=== PATIENT | male | born 1980 | race Caucasian/White ===

== ENCOUNTER 2017-01-29 17:12 | Inpatient (IN) | payer SELFPAY ==
[~2017-01-29] VITALS: Ht 170.2 cm; Wt 79.4 kg
[2017-01-29] MEDS ORDERED: NALOXONE 0.4 MG/ML VIAL. ONE (17:18)
--- NOTE | 2017-01-29 17:23 | PHYS DOC ---
Text Text Pt. continues to be very confused and falls asleep. Pt. admits to alcohol intake and Opana use. Pt. presentation, testing and tx. plan discussed with Dr. Espitia- will admit for further eval. and tx. Impression: 1. Mental status Change 2. Polysubstance Abuse 3. Leukocytosis 4. Elevated D-dimer 5. Hx. of Spherocytosis-given by pt. 6. Hypernatremia 7. Hypokalemia See Dr. Lowry chart for details. (TANA VÁSQUEZ MD) General Chief Complaint: ALTERED MENTAL STATUS Stated Complaint: ALTERED MENTAL STATUS Time Seen by MD: 17:20 Source: patient, other Exam Limitations: clinical condition Problems: (KRISTOFER LOWRY DO) Time Seen by MD: 18:35 Problems: (TANA VÁSQUEZ MD) History of Present Illness Initial Comments Pt is 36/M to ED with friend POV for AMS and suspected substance abuse. Friend states that pt, he and sons were fishing at park. States he saw pt lying on ground unresponsive, he brought pt to ED. On ED arrival no medical history at all known. Pt tachycardic, rousable but sedated. He's protecting his airway, otherwise stable vitals. Pt friend left immediately after dropping pt off "to go order picker kids." No other information available. Timing/Duration: unsure Severity: severe Modifying Factors: improves with other Associated Symptoms: other (KRISTOFER LOWRY DO) Allergies: Coded Allergies: No Known Drug Allergies (Unverified , 09/28/16) Past Medical History Medical History: other (unknown) Surgical History: noncontributory (KRISTOFER LOWRY DO) Social History Smoker: other (not known) Alcohol: other (not known) Drugs: other (not known) (KRISTOFER LOWRY DO) Review of Systems All Other Systems: Reviewed and Negative (pt unresponsive accurate ROS unobtainable) (KRISTOFER LOWRY DO) Physical Exam General Appearance: WD/WN (lethargic/sedated) Eyes: bilateral eye EOMI, bilateral eye other (pupils constricted) Ear, Nose, Throat: hearing grossly normal, normal ENT inspection, normal pharynx Neck: non-tender, supple Respiratory: normal breath sounds, no respiratory distress Cardiovascular: normal peripheral pulses, tachycardia Gastrointestinal: normal bowel sounds, soft Back: no CVA tenderness, no vertebral tenderness Extremities: normal range of motion, non-tender Neurologic/Psychiatric: other (no lateralizing neurodefs, sedate but rousable, doesn't answer or follow instructions.) Skin: normal color, diaphoresis (KRISTOFER LOWRY DO) Orders, Labs, Meds EKG: appears to be atrial fibrillation with RVR 131 bpm Pt awoke with narcan IV x 1, states he took opana. Studies pending, pt signed out to Dr Vásquez at 1800 shift change. See his documentation for results/disposition. (KRISTOFER LOWRY DO) KRISTOFER LOWRY DO Jan 29, 2017 17:23 TANA VÁSQUEZ MD Jan 30, 2017 05:47
--- NOTE | 2017-01-29 17:24 | EKG ---
[address] [address] Test Date: 2017-01-29 Test Time: 17:17:38 Pat Name: CHANI HARDING Department: Room: Gender: M Rn Cardiovascular Icu: PEDRO : 1980 Requested By: KRISTOFER LOWRY Order Number: [id number] Reading MD: Measurements Intervals [place] Rate: 131 P: OR: QRS: 43 QRSD: 94 T: 14 QT: 320 QTc: 478 Interpretive Statements IRREGULAR RHYTHM, NO P-WAVE FOUND NO SPECIFIC ECG ABNORMALITIES RI6.01 Unconfirmed report No previous ECG available for comparison
[2017-01-29] MEDS ORDERED: ONDANSETRON PF 4 MG/2 ML VIAL. ONE (17:25)
[2017-01-29] MEDS ORDERED: NALOXONE 0.4 MG/ML VIAL. IV ONE (17:30)
[2017-01-29] MEDS ORDERED: ONDANSETRON PF 4 MG/2 ML VIAL. IV ONE (17:45)
[2017-01-29 17:49] LABS: BASO # 0.1 x10^3/uL (0.0-0.2); BASO % 0 % (0-3); EOS # 0.4 x10^3/uL (0.0-0.7); EOS % 2 % (0-3); HEMATOCRIT 50.6 % (39.0-53.0); HEMOGLOBIN 17.5 g/dL (13.0-17.5); LYMPH # 5.8 x10^3/uL (1.0-4.8); LYMPH % 27 % (24-48); MEAN CORPUSCULAR HEMOGLOBIN 33 pg (25-35); MEAN CORPUSCULAR HGB CONC 35 g/dL (31-37); MEAN CORPUSCULAR VOLUME 94 fL (79-100); MONO # 1.8 x10^3/uL (0.0-1.1); MONO % 8 % (0-9); NEUT # 13.7 x10^3uL (1.8-7.7); NEUT % 63 % (31-73); PLATELET COUNT 350 x10^3/uL (140-400); RED BLOOD COUNT 5.39 x10^6/uL (4.30-5.70); RED CELL DISTRIBUTION WIDTH 15.3 % (11.5-14.5); WHITE BLOOD COUNT 21.7 x10^3/uL (4.0-11.0)
[2017-01-29 18:00] LABS: ALBUMIN 4.7 g/dL (3.4-5.0); CALCIUM 8.8 mg/dL (8.5-10.1); CREATININE 1.1 mg/dL (0.7-1.3); DIRECT BILIRUBIN 0.2 mg/dL (0.0-0.2); GFR 75.3; MAGNESIUM 2.2 mg/dL (1.8-2.4); POTASSIUM 3.1 mmol/L (3.5-5.1); TOTAL BILIRUBIN 0.7 mg/dL (0.2-1.0); TOTAL PROTEIN 8.4 g/dL (6.4-8.2)
[2017-01-29] MEDS ORDERED: MVI, ADULT NO.4 WITH VIT K 10 ML, FOLIC ACID SYRINGE for ER 1 MG, THIAMINE 100 MG in IV... IV SCH ×4 (18:00)
[2017-01-29] MEDS ORDERED: IV NORMAL SALINE 1,000ML 1,000 ML ONE (18:05)
[2017-01-29] MEDS ORDERED: THIAMINE 200 MG/2 ML VIAL. IV ONE (18:05)
[2017-01-29] MEDS ORDERED: MVI, ADULT NO.4 WITH VIT K 10 ML VIAL IV ONE (18:05)
[2017-01-29] MEDS ORDERED: FOLIC ACID 5 MG/ML SYRINGE for ER IV ONE (18:06)
[2017-01-29] MEDS ORDERED: ONDANSETRON PF 4 MG/2 ML VIAL. IV PRN (18:45)
[2017-01-29] MEDS ORDERED: CONTRAST GIVEN MC PRN (19:00)
[2017-01-29] MEDS: IV RINGERS SOLUTION,LACTATED 1,000 ML IV SCH (19:00)
[2017-01-29] MEDS ORDERED: NALOXONE 2 MG/2 ML DISP.SYRIN. IV PRN (19:00)
[2017-01-29] MEDS ORDERED: IOHEXOL 300 MG/ML 75 ML VIAL. IV ONE (19:00)
[2017-01-29] MEDS ORDERED: CEFTRIAXONE SODIUM 1 GM in IV NORMAL SALINE 50ML 50 ML IV ONE (19:15)
[2017-01-29] MEDS ORDERED: ENOXAPARIN ** NOTE DOSE ** SYRINGE SQ SCH (19:30)
--- NOTE | 2017-01-29 19:43 | RAD ---
PROCEDURE CTA chest with contrast dated 01/29/2017. HISTORY Found unresponsive. Elevated D-dimer. TECHNIQUE Contiguous axial imaging of the chest performed following the intravenous administration of 75 cc Omnipaque 300. Study was performed as a dedicated PE protocol with thin cut coronal MIPS 3D reconstructions.Exposure: One or more of the following individualized dose reduction techniques were utilized for this exam: 1. Automated exposure control. 2. Adjustment of the mA and/or kV according to patient size. 3. Use of iterative reconstruction technique. COMPARISON None. FINDINGS Study is somewhat limited due to motion artifact. There are questionable filling defects within the anterior left upper lobe segmental pulmonary artery and the lateral basal segmental artery of the right lower lobe (images 34 and 69). There is also questionable filling defect of the lateral superior segmental branch of the right lower lobe (image 51). No main pulmonary embolus or lobar pulmonary embolus. Heart size within normal limits. No pericardial effusion. No mediastinal, hilar or axillary lymphadenopathy. Central airways are patent. The no consolidation or pleural effusion. Minimal linear opacity in the lingula, likely scar or atelectasis. No pneumothorax. Limited images of upper abdomen are unremarkable. No acute bony abnormality. IMPRESSION - Limited exam. There are suspected small emboli involving the left upper lobe and right lower lobe pulmonary arteries as described above. Suggest correlation with venous Doppler exam. - Otherwise no significant abnormality. Clear lungs. Electronically signed by: Harrison Hilton (Jan 29, 2017 19:42:12)
[2017-01-29 19:52] LABS: % BANDS 2 % (0-9); % BASOS 1 % (0-3); % EOS 2 % (0-5); % LYMPHS 24 % (24-48); % MONOS 8 % (0-10); % SEGS 63 % (35-66); PLT ESTIMATE ADEQUATE (ADEQUATE)
[2017-01-29 19:54] LABS: ANISOCYTOSIS SLIGHT
[2017-01-29 19:55] LABS: POLYCHROMASIA SLIGHT
[2017-01-29 20:00] VITALS: BP 110/65
[2017-01-29 21:00] VITALS: BP 118/69
[2017-01-29] MEDS ORDERED: LORAZEPAM 1 MG TABLET. PO SCH (21:00)
[2017-01-29] MEDS: IPRATRPIUM/ALBUTEROL 0.5/2.5MG 3 ML NEBU. NEB SCH (21:00)
[2017-01-29 21:21] VITALS: BP 109/67
[2017-01-29] MEDS ORDERED: CEFTRIAXONE SODIUM 1 GM VIAL IV ONE (21:24)
[2017-01-29] MEDS ORDERED: IV NORMAL SALINE 50ML 50 ML ONE (21:24)
[2017-01-29 22:00] VITALS: BP 127/72
[2017-01-29] MEDS: LORAZEPAM 2 MG/ML VIAL IV PRN (22:47)
[2017-01-29 23:00] VITALS: BP 112/69
[2017-01-29 23:13] LABS: BILIRUBIN,URINE NEG (NEG); CLARITY,URINE CLEAR; COLOR,URINE AMBER; GLUCOSE,URINE 250 mg/dL (NEG)
[2017-01-29 23:14] LABS: BACTERIA,URINE 0 /HPF (0-FEW); NITRITE,URINE NEG (NEG); RBC,URINE OCC /HPF (0-2); SQUAMOUS EPITHELIAL CELL,UR OCC /LPF; UROBILINOGEN,URINE 0.2 mg/dL (0.2 mg/dL); WBC,URINE OCC /HPF (0-4)
[2017-01-29 23:26] LABS: BARBITURATES NEG (NEG); BENZODIAZEPINES NEG (NEG); CANNABINOIDS NEG (NEG); COCAINE NEG (NEG); METHADONE NEG (NEG); OPIATES NEG (NEG); PHENCYCLIDINE NEG (NEG)
[2017-01-29 23:30] LABS: AMPHETAMINE/METHAMPHETAMINE NEG (NEG)
[2017-01-30] VITALS (11 sets, daily range): BP systolic 94–147; BP diastolic 48–88
[2017-01-30] MEDS ORDERED: clonazepam (03:33)
[2017-01-30] MEDS ORDERED: wellbutrin (03:33)
[2017-01-30] MEDS: IV RINGERS SOLUTION,LACTATED 1,000 ML IV SCH ×3 (03:55→12:07)
[2017-01-30] MEDS: LORAZEPAM 2 MG/ML VIAL IV PRN (04:05)
[2017-01-30 06:46] LABS: BASO # 0.1 x10^3/uL (0.0-0.2); BASO % 0 % (0-3); EOS # 0.2 x10^3/uL (0.0-0.7); EOS % 1 % (0-3); HEMATOCRIT 41.9 % (39.0-53.0); HEMOGLOBIN 14.9 g/dL (13.0-17.5); LYMPH # 2.8 x10^3/uL (1.0-4.8); LYMPH % 16 % (24-48); MEAN CORPUSCULAR HEMOGLOBIN 33 pg (25-35); MEAN CORPUSCULAR HGB CONC 36 g/dL (31-37); MEAN CORPUSCULAR VOLUME 91 fL (79-100); MONO # 2.4 x10^3/uL (0.0-1.1); MONO % 14 % (0-9); NEUT # 11.9 x10^3uL (1.8-7.7); NEUT % 68 % (31-73); PLATELET COUNT 299 x10^3/uL (140-400); RED BLOOD COUNT 4.59 x10^6/uL (4.30-5.70); RED CELL DISTRIBUTION WIDTH 15.1 % (11.5-14.5); WHITE BLOOD COUNT 17.4 x10^3/uL (4.0-11.0)
[2017-01-30 07:07] LABS: ALBUMIN 3.5 g/dL (3.4-5.0); ALBUMIN/GLOBULIN RATIO 1.1 (1.0-1.7); CALCIUM 8.5 mg/dL (8.5-10.1); CREATININE 0.9 mg/dL (0.7-1.3); POTASSIUM 3.6 mmol/L (3.5-5.1); TOTAL BILIRUBIN 1.2 mg/dL (0.2-1.0); TOTAL PROTEIN 6.6 g/dL (6.4-8.2)
[2017-01-30] MEDS ORDERED: LORAZEPAM 1 MG TABLET. PO PRN (08:15)
[2017-01-30] MEDS ORDERED: HYDR50TA PO (08:34)
[2017-01-30] MEDS ORDERED: BUPR150T8 PO (08:34)
[2017-01-30] MEDS ORDERED: CLON1TAB3 PO (08:34)
[2017-01-30] MEDS: IPRATRPIUM/ALBUTEROL 0.5/2.5MG 3 ML NEBU. NEB SCH ×2 (08:49→13:00)
--- NOTE | 2017-01-30 08:51 | RAD ---
Exam: AP portable chest. History: Altered mental status, weakness, dizziness. Comparison: 08/04/2012. Findings: The heart and mediastinal structures are within normal limits for size. Lungs are without infiltrate. No pneumothorax or pleural effusion is appreciated. Impression: 1. No acute cardiopulmonary process.
[2017-01-30] MEDS ORDERED: ENOXAPARIN ** NOTE DOSE ** SYRINGE SQ SCH (09:00)
[2017-01-30] MEDS ORDERED: MVI, ADULT NO.4 WITH VIT K 10 ML, FOLIC ACID 1 MG, THIAMINE 100 MG in IV NORMAL SALINE ... IV SCH ×4 (09:00)
--- NOTE | 2017-01-30 10:15 | RAD ---
Bilateral lower extremity venous Doppler ultrasound History: Elevated d-dimer. Comparison: None. Procedure: Color Doppler, spectral Doppler, and grayscale images are obtained with and without compression in the area of the common femoral vein, superficial femoral vein - femoral vein junction, main femoral vein (superficial femoral vein) and popliteal vein. Veins of the proximal calf are also imaged. Findings: There is normal duplex flow, color flow and compressibility of all visualized vein segments. No evidence of deep venous thrombosis is present. Impression: No evidence of lower extremity deep venous thrombosis.
[2017-01-30] MEDS ORDERED: APIX5TAB PO ×4 (13:26→13:34)
--- NOTE | 2017-01-30 15:49 | SSS ---
ADMIT DATE: 01/30/2017 DISCHARGE DIAGNOSES: 1. Bilateral pulmonary embolisms. 2. Alcohol intoxication. 3. Opiate abuse - IV use of Opana. 4. Tobacco use disorder. 5. Hypokalemia. 6. Anxiety. HOSPITAL COURSE AND MEDICAL DECISION MAKING: A 36-year-old male, who was with his friend last night, who evidently abuses Opana and offered him a half of Opana "? unknown dose to shoot up." He did end evidently since he is opioid na?ve and he passed out. He was intoxicated with alcohol at that time and was transported to the Emergency Room. While in the Emergency Room, he was found to have an elevated D-dimer and also an elevated white count, I suspect from inflammation. His hypokalemia was corrected and his hypernatremia was also corrected with IV fluids. ALLERGIES: None. MEDICATIONS: Reviewed. The patient had a CT of the chest and was found to have bilateral pulmonary emboli. In discussion with the radiologist felt that this is was true finding, but sometimes IV drug use can give the same picture. He was a little bit short of breath yesterday. The patient was started on Lovenox and was on the alcohol withdrawal protocol. He never showed any signs of alcohol withdrawal. He did have one dose of ceftriaxone because of elevated white count: OBJECTIVE: VITAL SIGNS: At discharge 134/74, pulse 82, respirations 19, pulse ox 95% on room air. GENERAL: The patient was alert and cooperative. HEENT: Hearing is normal. His eyes are clear. His nose patent. His tongue was moist. NECK: Supple. LUNGS: Clear. CARDIOVASCULAR: Regular rhythm and rate. ABDOMEN: Soft, nontender. EXTREMITIES: Without edema. NEUROLOGIC: Has a little bit of a tremor, post-alcohol tremor of his hands. LABORATORY DATA: Reviewed. He did have elevated white count 21.7, now it is 17.4. DISPOSITION: Home. He was started on Eliquis. Detailed instructions were given as well as ability to be able to pay for it. Encouraged to quit smoking and follow up with his regular doctor. ERIN VOGT DO DR: SHIRLEY/curt JOB#: [id number] / [id number]
[2017-01-30] MEDS ORDERED: CEFTRIAXONE SODIUM 1 GM in IV NORMAL SALINE 50ML 50 ML IV SCH (20:00)
== END 2017-01-30 14:01 | disposition home or self-care (01) | DRG 175 ==
LOC: ER 17:12 → ICU 18:50
PROVIDERS: ADMIT Internal Medicine; ATTEND Internal Medicine
DX: I26.99 Other pulmonary embolism without acute cor pulmonale (principal); G93.41 Metabolic encephalopathy; E87.0 Hyperosmolality and hypernatremia; D72.829 Elevated white blood cell count, unspecified; E87.6 Hypokalemia; F10.129 Alcohol abuse with intoxication, unspecified; F11.10 Opioid abuse, uncomplicated; F41.9 Anxiety disorder, unspecified; Z72.0 Tobacco use
CPT/HCPCS: 36415; 71010; 71275; 80048; 80053; 80076; 81001; 82550; 83690; 83735; 83880; 84484; 85007; 85027; 85379; 87040; 87641; 93005; 93970; 96374; 96375; G0480; G0481; J0696; J1650; J2060; J2310; J2405; J7120; Q9967; 99285-25; J7030

== ENCOUNTER → 2017-02-11 | Emergency (ER) | payer SELFPAY ==
[~2017-02-11] MED LIST: ALPRAZOLAM 0.25 MG TABLET PO ONE; APIX5TAB PO; BUPR150T8 PO; CLON1TAB3 PO; HYDR50TA PO; clonazepam; wellbutrin
[2017-02-11 13:27] VITALS: BP 172/90
--- NOTE | 2017-02-11 16:34 | ED.ADGEN ---
Past History Past Medical History: Anxiety, Depression, Other Past Surgical History: Other Alcohol Use: Heavy Additional Alcohol Information: drank 3 beers this am per pt recall Drug Use: Other Social History Narrative: history of opiate abuse in old chart Adult General HPI HPI Patient is a 36-year-old male presents emergency department complaining of increased anxiety. Patient has a history of anxiety and his usual klonopine. However he did not take it today because "I do not like to take it too often". Patient denies any other complaint at this time. Review of Systems Review of Systems Constitutional: Denies fever or chills [] Eyes: Denies change in visual acuity, redness, or eye pain [] HENT: Denies nasal congestion or sore throat [] Respiratory: Denies cough or shortness of breath [] Cardiovascular: No additional information not addressed in HPI [] GI: Denies abdominal pain, nausea, vomiting, bloody stools or diarrhea [] : Denies dysuria or hematuria [] Musculoskeletal: Denies back pain or joint pain [] Integument: Denies rash or skin lesions [] Neurologic: Denies headache, focal weakness or sensory changes [] Endocrine: Denies polyuria or polydipsia [] Current Medications Current Medications Current Medications Medications (Trade) Dose Ordered Sig/Ramin Start Time Stop Time Status Last Admin Dose Admin Alprazolam (Xanax) 0.5 mg 1X ONCE 02/11/17 14:45 02/11/17 14:46 DC 02/11/17 15:03 0.5 MG Allergies Allergies Allergies Coded Allergies Type Severity Reaction Last Updated Verified I S O L A T I O N *CONTACT* Allergy Unknown 01/31/17 Yes NKMA Allergy Unknown 01/31/17 Yes Physical Exam Physical Exam Constitutional: Well developed, well nourished, no acute distress, non-toxic appearance. [] HENT: Normocephalic, atraumatic, bilateral external ears normal, oropharynx moist, no oral exudates, nose normal. [] Eyes: PERRLA, EOMI, conjunctiva normal, no discharge. [] Neck: Normal range of motion, no tenderness, supple, no stridor. [] Cardiovascular:Heart rate regular rhythm, no murmur [] Lungs & Thorax: Bilateral breath sounds clear to auscultation [] Abdomen: Bowel sounds normal, soft, no tenderness, no masses, no pulsatile masses. [] Skin: Warm, dry, no erythema, no rash. [] Back: No tenderness, no CVA tenderness. [] Extremities: No tenderness, no cyanosis, no clubbing, ROM intact, no edema. [] Neurologic: Alert and oriented X 3, normal motor function, normal sensory function, no focal deficits noted. [] Psychologic: Affect normal, judgement normal, mood normal. [] Current Patient Data Vital Signs Vital Signs Date Time Temp Pulse Resp B/P Pulse Ox O2 Delivery O2 Flow Rate FiO2 02/11/17 13:27 97.7 138 16 94 Room Air EKG EKG [] Radiology/Procedures Radiology/Procedures [] Course & Med Decision Making Course & Med Decision Making Pertinent Labs and Imaging studies reviewed. (See chart for details) Patient received a dose of Xanax here in emergency Department with good effect. He was discharged home and instructed to follow-up with his primary care physician regarding the dosage and frequency of his anxiety medications. [] Final Impression Final Impression Anxiety [] Problems: Dragon Disclaimer Dragon Disclaimer This electronic medical record was generated, in whole or in part, using a voice recognition dictation system. KALPESH KAPADIA MD Feb 11, 2017 16:34
== END ==
LOC: ER 13:27
DX: F41.9 Anxiety disorder, unspecified (principal); F32.9 Major depressive disorder, single episode, unspecified; F10.10 Alcohol abuse, uncomplicated; Z91.041 Radiographic dye allergy status
CPT/HCPCS: 99284

== ENCOUNTER 2017-08-24 15:49 | Emergency (ER) | payer SELFPAY ==
[~2017-08-24] VITALS: Ht 167.6 cm; Wt 71.3 kg
[~2017-08-24 15:49] MED LIST changes: -ALPRAZOLAM 0.25 MG TABLET PO ONE; -APIX5TAB PO; +APIX5TAB3 PO
[2017-08-24 16:04] VITALS: BP 145/81
[2017-08-24] MEDS ORDERED: CEPH-264 PO (16:19)
[2017-08-24] MEDS ORDERED: SULF1TAB24 PO (16:19)
[2017-08-24] MEDS ORDERED: SMZ/TMP 800/160MG TABLET. PO ONE (16:20)
[2017-08-24] MEDS ORDERED: HYDR-971 PO (16:20)
[2017-08-24] MEDS ORDERED: CEPHALEXIN 250 MG CAPSULE PO ONE (16:20)
--- NOTE | 2017-08-24 16:20 | PHYS DOC ---
Past History Past Medical History: Anxiety, Depression, Other Past Surgical History: Other Alcohol Use: Heavy Drug Use: Other Adult General Chief Complaint Chief Complaint: SKIN PROBLEM HPI HPI Patient is a 36 year old female who presents with complaint of pain and swelling to right index finger. Patient states that he cut himself 2 weeks ago on the medial aspect of the right index finger. Patient states the cat went very deep but he did not seek medical attention at that time. Patient states that he super glued the wound together and states that he had no problems until last 2 days. Patient states that he has had increasing swelling and throbbing to the finger near the wound site. Patient states that his been draining yellowish pus over the past 24 hours. Patient denies any fevers, lymphangitic streaking up his arm, nausea, or vomiting. Patient rates pain in his finger as 8 out of 10. Patient states that it worsens when he tries to bend his finger. Patient states that he has been taking ibuprofen with no significant relief in symptoms. Review of Systems Review of Systems Constitutional: Denies fever or chills [] Eyes: Denies change in visual acuity, redness, or eye pain [] HENT: Denies nasal congestion or sore throat [] Respiratory: Denies cough or shortness of breath [] Cardiovascular: Denies chest pain or edema[] GI: Denies abdominal pain, nausea, vomiting, bloody stools or diarrhea [] : Denies dysuria or hematuria [] Musculoskeletal: Right second finger pain, swelling, drainage[] Integument: Denies rash or skin lesions [] Neurologic: Denies headache, focal weakness or sensory changes [] Endocrine: Denies polyuria or polydipsia [] Allergies Allergies Allergies Coded Allergies Type Severity Reaction Last Updated Verified I S O L A T I O N *CONTACT* Allergy Unknown 01/31/17 Yes NKMA Allergy Unknown 01/31/17 Yes Physical Exam Physical Exam Constitutional: Well developed, well nourished, no acute distress, non-toxic appearance. [] HENT: Normocephalic, atraumatic, bilateral external ears normal, oropharynx moist, no oral exudates, nose normal. [] Eyes: PERRLA, EOMI, conjunctiva normal, no discharge. [] Neck: Normal range of motion, no tenderness, supple, no stridor. [] Cardiovascular:Heart rate regular rhythm, no murmur [] Lungs & Thorax: Bilateral breath sounds clear to auscultation [] Abdomen: Bowel sounds normal, soft, no tenderness, no masses, no pulsatile masses. [] Skin: Warm, dry, erythema and moderate soft tissue swelling along the medial aspect of right second digit near the PIP joint, curvilinear wound with serous drainage present, tenderness palpation.[] Back: No tenderness, no CVA tenderness. [] Extremities: Soft tissue swelling of right second digit at the medial PIP joint near subacute wound, mildly decreased flexion secondary to pain, neurovascularly intact in all 5 digits of left hand, no lymphangitic streaking. [] Neurologic: Alert and oriented X 3, normal motor function, normal sensory function, no focal deficits noted. [] Current Patient Data Vital Signs Vital Signs Date Time Temp Pulse Resp B/P (MAP) Pulse Ox O2 Delivery O2 Flow Rate FiO2 08/24/17 16:04 98.1 102 20 98 Room Air Lab Results None performed EKG EKG Not performed[] Radiology/Procedures Radiology/Procedures None performed[] Course & Med Decision Making Course & Med Decision Making Pertinent Labs and Imaging studies reviewed. (See chart for details) Patient's infection appears localized to the finger. No significant fluctuance is present when examining the wound. The wound is draining yellowish clearish pus at this time. Patient has evidence of cellulitis of the right index finger. Patient was started on Bactrim and Keflex in the emergency department. The patient was provided with the clinic phone number for [facility] to schedule an appointment with hand surgery clinic for follow-up in 3-5 days to have the wound reexamined at that time. Advised return emergency department for any worsening symptoms. The patient was discharged with a 10 day course of both Bactrim and Keflex. Patient voiced understanding and in agreement with treatment plan. Dragon Disclaimer Dragon Disclaimer This chart was dictated in whole or in part using Voice Recognition software in a busy, high-work load, and often noisy Emergency Department environment. It may contain unintended and wholly unrecognized errors or omissions. Departure Departure: Impression: Primary Impression: Cellulitis of finger of right hand Disposition: HOME, SELF-CARE Condition: IMPROVED Referrals: LULÚ TORRES (PCP) Patient Instructions: Cellulitis Additional Instructions: Call to schedule a follow-up appointment with the hand surgery clinic at [facility] in the next 3 days for reevaluation. Continue to apply warm compresses to the affected area to help promote drainage through the skin of any underlying pus. Return to the emergency department for any worsening symptoms. Scripts Hydrocodone Bit/Acetaminophen (NORCO 5-325 TABLET) 1 Each Tablet 1-2 TAB PO Q4-6HRS Y for PAIN, #20 TAB Prov: BRIT WANG MD 08/24/17 Cephalexin (KEFLEX) 500 Mg Capsule 1 CAP PO QID, #40 CAP Prov: BRIT WANG MD 08/24/17 Sulfamethoxazole/Trimethoprim (BACTRIM DS TABLET) 1 Each Tablet 1 TAB PO BID, #20 TAB Prov: BRIT WANG MD 08/24/17 BRIT WANG MD Aug 24, 2017 16:20
[2017-08-24] MEDS ORDERED: DIPHTH,PERTUSS(ACELL),TET TOX 0.5 ML DISP.SYRIN. VAX IM ONE (16:45)
== END 2017-08-24 16:40 | disposition home or self-care (01) ==
LOC: ER 15:49
DX: L03.011 Cellulitis of right finger (principal); F10.10 Alcohol abuse, uncomplicated; Z91.041 Radiographic dye allergy status
CPT/HCPCS: 90471; 90715; 99283-25